=== PATIENT | female | born 1980 | race Caucasian/White ===

== ENCOUNTER 2021-05-29 11:08 | Emergency (ER) | payer BC ==
[~2021-05-29] VITALS: Ht 165 cm; Wt 146.0 kg
[~2021-05-29 11:08] MED LIST: ALPR.25T PO; CITA10TA PO
--- NOTE | 2021-05-29 11:40 | ED Cardiac General ---
History of Present Illness General Chief Complaint: Cardiac/General Problems Stated Complaint: HIGH BP 203/130 - SOA Nursing Triage Note: pt had hypertension at work this a.m. and went to dr. smith who sent her to the er.. pt has a rx for lisinopril but has not taken it for over a month Source: patient Exam Limitations: no limitations History of Present Illness Date Seen by Provider: May 29, 2021 Time Seen by Provider: 11:36 Initial Comments To ER by private vehicle with reports of high blood pressure. She teaches at [employer]. She noticed herself to be a little short of breath with exertion today and one of her peers noticed this as well. They referred her to the school nurse who checked her blood pressure and found it to be about 210/100. She then went to primary care Dr. Smith who found it to be 200/120. She was referred here to the emergency room. The shortness of breath that was unusual for her started just this past weekend about 2 days ago. No chest pain no cough. She does have some obesity and she attributed her dyspnea to that though she states it is a bit worse than usual. She was formerly on lisinopril 10 mg daily but ran out of that about a month ago and just has not been taking it since then, never got it refilled. Otherwise healthy. Timing/Duration: changing over time, 1-2 days Severity: moderate Activities at Onset: none Prior CP/Workup: no prior chest pain NTG SL PATTERNMAKER SAMPLE: No ASA po PATTERNMAKER SAMPLE: No Associated Systoms: Denies Symptoms Allergies and Home Medications Allergies Coded Allergies: No Known Drug Allergies (Unverified , 10/24/10) Patient Home Medication List Home Medication List Reviewed: Yes Alprazolam (Xanax) 0.25 Mg Tablet, 1 TAB PO NEEDED, (Reported) Entered as Reported by: BRE MAXWELL on 10/24/10828 Citalopram Hydrobromide (Citalopram Hbr) 10 Mg Tablet, 10 MG PO DAILY, (Reported) Entered as Reported by: BRE MAXWELL on 10/24/10828 Lisinopril (Lisinopril) 20 Mg Tablet, 20 MG PO DAILY Prescribed by: WAYNE DOWNING on 05/29/21 1308 Review of Systems Review of Systems Constitutional: see HPI EENTM: No Symptoms Reported Respiratory: Denies Cough; Shortness of Air, SOA With Exertion Cardiovascular: No Symptoms Reported; Denies Chest Pain Gastrointestinal: No Symptoms Reported Genitourinary: No Symptoms Reported Musculoskeletal: no symptoms reported Skin: no symptoms reported Psychiatric/Neurological: No Symptoms Reported Endocrine: No Symptoms Reported Hematologic/Lymphatic: No Symptoms Reported Past Wohyeqv-Whxoyz-Bdqjfu Hx Past Medical History Last Menstrual Period: May 19, 2021 Reproductive Disorders: Yes (UTERINE MASS, DUB) Physical Exam Vital Signs Vital Signs - First Documented 05/29/21 11:28 Temp 36.2 Pulse 77 Resp 20 B/P (MAP) 194/135 (154) Pulse Ox 94 O2 Delivery Room Air Capillary Refill : Less Than 3 Seconds Height, Weight, BMI Height: '" Weight: lbs. oz. kg; 53.00 BMI Method: General Appearance: No Apparent Distress, WD/WN, Obese, Other (Alert and oriented very pleasant no distress no accessory muscle use. No hypoxia. Rest blood pressure 155/96.) Neck: Full Range of Motion, Normal Inspection Respiratory: Normal Breath Sounds, No Accessory Muscle Use, No Respiratory Distress Cardiovascular: Regular Rate, Rhythm, Normal Peripheral Pulses Gastrointestinal: Normal Bowel Sounds, Non Tender, Soft Extremity: Normal Capillary Refill, Normal Inspection Neurologic/Psychiatric: Alert, Oriented x3 Skin: Normal Color, Warm/Dry Progress/Results/Core Measures Results/Orders Lab Results Laboratory Tests Test 05/29/21 11:50 Range/Units White Blood Count 15.2 H 4.3-11.0 10^3/uL Red Blood Count 5.14 H 3.80-5.11 10^6/uL Hemoglobin 11.9 11.5-16.0 g/dL Hematocrit 39 35-52 % Mean Corpuscular Volume 77 L 80-99 fL Mean Corpuscular Hemoglobin 23 L 25-34 pg Mean Corpuscular Hemoglobin Concent 30 L 32-36 g/dL Red Cell Distribution Width 17.2 H 10.0-14.5 % Platelet Count 444 H 130-400 10^3/uL Mean Platelet Volume 9.3 9.0-12.2 fL Immature Granulocyte % (Auto) 3 % Neutrophils (%) (Auto) 71 42-75 % Lymphocytes (%) (Auto) 17 12-44 % Monocytes (%) (Auto) 6 0-12 % Eosinophils (%) (Auto) 2 0-10 % Basophils (%) (Auto) 1 0-10 % Neutrophils # (Auto) 10.8 H 1.8-7.8 10^3/uL Lymphocytes # (Auto) 2.6 1.0-4.0 10^3/uL Monocytes # (Auto) 0.9 0.0-1.0 10^3/uL Eosinophils # (Auto) 0.4 H 0.0-0.3 10^3/uL Basophils # (Auto) 0.1 0.0-0.1 10^3/uL Immature Granulocyte # (Auto) 0.4 H 0.0-0.1 10^3/uL Neutrophils % (Manual) 82 % Lymphocytes % (Manual) 14 % Monocytes % (Manual) 2 % Eosinophils % (Manual) 1 % Basophils % (Manual) 1 % Polychromasia SLIGHT Hypochromasia MODERATE Poikilocytosis SLIGHT Anisocytosis MODERATE Microcytosis MODERATE Macrocytosis SLIGHT Prothrombin Time 13.1 12.2-14.7 SEC INR Comment 1.0 0.8-1.4 Activated Partial Thromboplast Time 29 24-35 SEC D-Dimer <= 0.27 0.00-0.49 UG/ML Sodium Level 138 135-145 MMOL/L Potassium Level 3.8 3.6-5.0 MMOL/L Chloride Level 103 98-107 MMOL/L Carbon Dioxide Level 21 21-32 MMOL/L Anion Gap 14 5-14 MMOL/L Blood Urea Nitrogen 15 7-18 MG/DL Creatinine 1.13 0.60-1.30 MG/DL Estimat Glomerular Filtration Rate 62 BUN/Creatinine Ratio 13 Glucose Level 94 70-105 MG/DL Calcium Level 9.2 8.5-10.1 MG/DL Corrected Calcium 9.6 8.5-10.1 MG/DL Magnesium Level 1.8 1.6-2.4 MG/DL Total Bilirubin 0.3 0.1-1.0 MG/DL Aspartate Amino Transf (AST/SGOT) 18 5-34 U/L Alanine Aminotransferase (ALT/SGPT) 21 0-55 U/L Alkaline Phosphatase 94 40-136 U/L Myoglobin 54.8 10.0-92.0 NG/ML Troponin I < 0.028 <0.028 NG/ML C-Reactive Protein High Sensitivity 3.90 H 0.00-0.50 MG/DL B-Type Natriuretic Peptide 134.7 H <100.0 PG/ML Total Protein 8.0 6.4-8.2 GM/DL Albumin 3.5 3.2-4.5 GM/DL Serum Test, Qualitative NEGATIVE NEGATIVE My Orders Orders - WAYNE DOWNING APRN Cbc With Automated Diff (05/29/21 11:32) Magnesium (05/29/21 11:32) Chest 1 View, Ap/Pa Only (05/29/21 11:32) Ekg Tracing (05/29/21 11:32) Comprehensive Metabolic Panel (05/29/21 11:32) Myoglobin Serum (05/29/21 11:32) Protime With Inr (05/29/21 11:32) Partial Thromboplastin Time (05/29/21 11:32) O2 (05/29/21 11:32) Monitor-Rhythm Ecg Trace Only (05/29/21 11:32) Lipid Panel (05/30/21 06:00) Ed Iv/Invasive Line Start (05/29/21 11:32) Bnp [place] (05/29/21 11:32) Fibrin Degradation Products (05/29/21 11:32) Troponin I [place] (05/29/21 11:32) Aspirin Chewable Tablet (Baby Aspirin Ch (05/29/21 11:45) Hcg,Qualitative Serum (05/29/21 11:32) Manual Differential (05/29/21 11:50) Procalcitonin (Pct) (05/29/21 12:08) Hs C Reactive Protein (05/29/21 12:08) Clonidine Tablet (Catapres Tablet) (05/29/21 13:15) Medications Given in ED Current Medications Medications Dose Ordered Sig/Bebeto Route Start Time Stop Time Status Last Admin Dose Admin Aspirin 324 mg ONCE ONCE PO 05/29/21 11:45 05/29/21 11:46 DC 05/29/21 11:56 324 MG Vital Signs/I&O 05/29/21 11:28 Temp 36.2 Pulse 77 Resp 20 B/P (MAP) 194/135 (154) Pulse Ox 94 O2 Delivery Room Air Blood Pressure Mean: 154 Departure Communication (Admissions) Family Conversation [id number]-spoke with Dr. Smith, he will see her Saturday morning for follow-up. NAME: MAIKOL LOZANO MED REC#: [id number] PT STATUS: REG ER : 1980 PHYSICIAN: WAYNE DOWNING APRN ADMIT DATE: 05/29/21/ER Draft Date of Exam:05/29/21 CHEST 1 VIEW, AP/PA ONLY INDICATION: Chest pain. EXAMINATION: Portable chest at 11:36 a.m. FINDINGS: Heart size and pulmonary vascularity are normal. Lungs are clear. There are no effusions or pneumothoraces. IMPRESSION: No acute abnormalities in the chest. Dictated on workstation # [id number] Dict: 05/29/21 1200 Trans: 05/29/21 1202 AS6 [id number] Interpreted by: VASHTI MASSEY MD Electronically signed by: Impression Primary Impression: Hypertension Disposition: 01 HOME, SELF-CARE Condition: Stable Departure-Patient Inst. Decision time for Depature: 13:04 Referrals: MAGDY SMITH DO (PCP/Family) Primary Care Physician Patient Instructions: High Blood Pressure (DC) Add. Discharge Instructions: 1. Your white blood cells were little elevated. This is nonspecific but warrants follow-up with primary care. I did send in a prescription for more lisinopril but this time a higher dose at 20 mg daily. Return to ER for any worsening. Dr. Smith would like to see you on Saturday morning for recheck. Start the blood pressure medication today. All discharge instructions reviewed with patient and/or family. Voiced understanding. Scripts Lisinopril (Lisinopril) 20 Mg Tablet 20 MG PO DAILY, #30 TAB 3 Refills Prov: WAYNE DOWNING APRN 05/29/21 Work/School Note: Work Release Form Date Seen in the Emergency Department: May 29, 2021 Return to Work: May 30, 2021 Copy Copies To 1: MAGDY SMITH PETER J APRN May 29, 2021 11:40
[2021-05-29] MEDS ORDERED: ASPIRIN 81 MG CHEW (CHILDREN'S ASA) PO ONE (11:45)
[2021-05-29 12:00] LABS: BASOPHILS # (AUTO) 0.1 10^3/uL (0.0-0.1); BASOPHILS % (AUTO) 1 % (0-10); EOSINOPHILS # (AUTO) 0.4 10^3/uL (0.0-0.3); EOSINOPHILS % (AUTO) 2 % (0-10); HEMATOCRIT 39 % (35-52); HEMOGLOBIN 11.9 g/dL (11.5-16.0); LYMPHOCYTES # (AUTO) 2.6 10^3/uL (1.0-4.0); LYMPHOCYTES % (AUTO) 17 % (12-44); MEAN CORPUSCULAR HEMOGLOBIN 23 pg (25-34); MEAN CORPUSCULAR HGB CONC 30 g/dL (32-36); MEAN CORPUSCULAR VOLUME 77 fL (80-99); MEAN PLATELET VOLUME 9.3 fL (9.0-12.2); MONOCYTES # (AUTO) 0.9 10^3/uL (0.0-1.0); MONOCYTES % (AUTO) 6 % (0-12); NEUTROPHILS # (AUTO) 10.8 10^3/uL (1.8-7.8); NEUTROPHILS % (AUTO) 71 % (42-75); PLATELET COUNT 444 10^3/uL (130-400); WHITE BLOOD COUNT 15.2 10^3/uL (4.3-11.0)
--- NOTE | 2021-05-29 12:02 | Diagnostic Imaging Report ---
INDICATION: Chest pain. EXAMINATION: Portable chest at 11:36 a.m. FINDINGS: Heart size and pulmonary vascularity are normal. Lungs are clear. There are no effusions or pneumothoraces. IMPRESSION: No acute abnormalities in the chest. Dictated by: Dictated on workstation # [id number]
[2021-05-29 12:10] LABS: ALBUMIN 3.5 GM/DL (3.2-4.5); POTASSIUM 3.8 MMOL/L (3.6-5.0)
[2021-05-29 12:12] LABS: CALCIUM 9.2 MG/DL (8.5-10.1)
[2021-05-29 12:14] LABS: PROTHROMBIN TIME PATIENT 13.1 SEC (12.2-14.7)
[2021-05-29 12:15] LABS: BILIRUBIN,TOTAL 0.3 MG/DL (0.1-1.0)
[2021-05-29 12:17] LABS: CREATININE SERUM 1.13 MG/DL (0.60-1.30)
[2021-05-29 12:20] LABS: MAGNESIUM 1.8 MG/DL (1.6-2.4)
[2021-05-29 12:34] LABS: ANISOCYTOSIS MODERATE; BASOPHILS % (MANUAL) 1 %; EOSINOPHILS % (MANUAL) 1 %; HYPOCHROMASIA MODERATE; LYMPHOCYTES % (MANUAL) 14 %; MICROCYTOSIS MODERATE; MONOCYTES % (MANUAL) 2 %; NEUTROPHILS % (MANUAL) 82 %; POIKILOCYTOSIS SLIGHT; POLYCHROMASIA SLIGHT
[2021-05-29] MEDS ORDERED: LISI20TA26 PO (13:08)
[2021-05-29] MEDS ORDERED: cloNIDine 0.1 MG (CATAPRES) TAB PO ONE (13:15)
[2021-05-29 13:24] VITALS: BP 156/94
== END 2021-05-29 13:24 | disposition home or self-care (01) ==
LOC: EDUNIT# 11:08 → ER 11:10
DX: I10 Essential (primary) hypertension (principal); E66.9 Obesity, unspecified; Z68.43 Body mass index [BMI] 50.0-59.9, adult
CPT/HCPCS: 36415; 71045; 80053; 83735; 83874; 83880; 84145; 84484; 84703; 85007; 85027; 85379; 85610; 85730; 86141; 93005; 93041

== ENCOUNTER 2021-06-14 08:10 | Emergency (ER) | payer BC ==
[~2021-06-14] VITALS: Ht 165.1 cm; Wt 142.8 kg
[~2021-06-14 08:10] MED LIST changes: +LISI20TA26 PO
--- NOTE | 2021-06-14 09:05 | ED Cardiac General ---
History of Present Illness General Chief Complaint: Cardiac/General Problems Stated Complaint: HIGH BP Nursing Triage Note: PT AMB TO RM 8 WITH COMPLAINT OF HTN. STATES HAS BEEN ONGOING FOR TWO WEEKS. WAS SENT BY PCP FOR FURTHER WORKUP. Source: patient, RN/MD Exam Limitations: no limitations History of Present Illness Date Seen by Provider: Jun 14, 2021 Time Seen by Provider: 09:00 Initial Comments Patient to the ER by private conveyance from home with chief complaint that she has been dealing for the past couple weeks with high blood pressure around 200/100. 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 Dr. Smith sent her to the ER on the , about a week ago. She had 190/100 blood pressure at that time and had been on lisinopril 10 mg for 10 years. They elected to raise her lisinopril to 40 mg which she did not tolerate because she developed a cough and shortness of air. She had a work-up and had this switched to losartan 100 mg with hydrochlorothiazide 12.5 mg daily. This medication was started on Saturday, [address] Smith was concerned about her blood pressure so asked her to check it at home and it was high 200/110. She went into the clinic and had not taken her medication but still had high blood pressure similar for Dr. Smith so he encouraged her to come out to the ER for a work-up. The patient does have a significant early onset of coronary disease in her family, obesity, suspected obstructive sleep apnea though she has not completed a sleep study, hypertension but no known hyperlipidemia or diabetes. Since she does not check her blood pressure she does not know what it was running prior to 2 weeks ago when she started having symptoms. She is never had any chest pain. No chest pressure numbness weakness tingling in her arms neck or jaw. The patient states she feels much better today than she did a week ago. She thinks she is tolerating the medications well and does not feel she is been on them long enough to have good effect from them. Allergies and Home Medications Allergies Coded Allergies: No Known Drug Allergies (Unverified , 10/24/10) Patient Home Medication List Home Medication List Reviewed: Yes Alprazolam (Xanax) 0.25 Mg Tablet, 1 TAB PO NEEDED, (Reported) Entered as Reported by: BRE MAXWELL on 10/24/10 0829 Citalopram Hydrobromide (Citalopram Hbr) 10 Mg Tablet, 10 MG PO DAILY, (Reported) Entered as Reported by: BRE MAXWELL on 10/24/1029 Lisinopril (Lisinopril) 20 Mg Tablet, 20 MG PO DAILY Prescribed by: WAYNE DOWNING on 05/29/21 1308 Losartan/Hydrochlorothiazide (Losartan-Hctz 100-25 mg Tab) 100 Mg-25 Mg Tablet, 1 EACH PO DAILY Prescribed by: FATMATA LUONG on 06/14/21 1055 Review of Systems Review of Systems Constitutional: No chills, No diaphoresis EENTM: No Blurred Vision, No Double Vision Respiratory: Denies Cough, Denies Shortness of Air Cardiovascular: Denies Chest Pain, Denies Lightheadedness Gastrointestinal: Denies Abdomen Distended, Denies Abdominal Pain Genitourinary: Denies Burning, Denies Discharge Musculoskeletal: No back pain, No joint pain All Other Systems Reviewed Negative Unless Noted: Yes Past Qacqpka-Fzyawy-Jyfmrw Hx Patient Social History Tobacco Use?: No Use of E-Cig and/or Vaping dev: No Substance use?: No Alcohol Use?: No Pt feels they are or have been: No Immunizations Up To Date First/Initial COVID19 Vaccinat: 12/28/2020 Second COVID19 Vaccination Gokul: 12/28/2020 Third COVID19 Vaccination Date: 12/28/2020 Past Medical History Reproductive Disorders: Yes (UTERINE MASS, DUB) Physical Exam Vital Signs Vital Signs - First Documented 06/14/21 08:15 Temp 36.6 Pulse 92 Resp 13 B/P (MAP) 206/132 (156) Pulse Ox 95 O2 Delivery Room Air Capillary Refill : Less Than 3 Seconds Height, Weight, BMI Height: '" Weight: lbs. oz. kg; 52.00 BMI Method: General Appearance: No Apparent Distress, WD/WN, Obese HEENT: PERRL/EOMI, Pharynx Normal, Moist Mucous Membranes Neck: Full Range of Motion, Normal Inspection Respiratory: Lungs Clear, Normal Breath Sounds, No Accessory Muscle Use, No Respiratory Distress Cardiovascular: Regular Rate, Rhythm, No Edema, Normal Peripheral Pulses Gastrointestinal: Normal Bowel Sounds, Non Tender, Soft Extremity: Normal Capillary Refill, Normal Inspection, No Pedal Edema Neurologic/Psychiatric: Alert, Oriented x3 Skin: Normal Color, Warm/Dry Progress/Results/Core Measures Results/Orders Lab Results Laboratory Tests Test 06/14/21 09:01 Range/Units White Blood Count 10.1 4.3-11.0 10^3/uL Red Blood Count 5.52 H 3.80-5.11 10^6/uL Hemoglobin 12.7 11.5-16.0 g/dL Hematocrit 42 35-52 % Mean Corpuscular Volume 76 L 80-99 fL Mean Corpuscular Hemoglobin 23 L 25-34 pg Mean Corpuscular Hemoglobin Concent 31 L 32-36 g/dL Red Cell Distribution Width 17.3 H 10.0-14.5 % Platelet Count 460 H 130-400 10^3/uL Mean Platelet Volume 9.4 9.0-12.2 fL Immature Granulocyte % (Auto) 2 % Neutrophils (%) (Auto) 67 42-75 % Lymphocytes (%) (Auto) 19 12-44 % Monocytes (%) (Auto) 7 0-12 % Eosinophils (%) (Auto) 4 0-10 % Basophils (%) (Auto) 1 0-10 % Neutrophils # (Auto) 6.8 1.8-7.8 10^3/uL Lymphocytes # (Auto) 1.9 1.0-4.0 10^3/uL Monocytes # (Auto) 0.7 0.0-1.0 10^3/uL Eosinophils # (Auto) 0.4 H 0.0-0.3 10^3/uL Basophils # (Auto) 0.1 0.0-0.1 10^3/uL Immature Granulocyte # (Auto) 0.2 H 0.0-0.1 10^3/uL Sodium Level 136 135-145 MMOL/L Potassium Level 3.9 3.6-5.0 MMOL/L Chloride Level 100 98-107 MMOL/L Carbon Dioxide Level 21 21-32 MMOL/L Anion Gap 15 H 5-14 MMOL/L Blood Urea Nitrogen 17 7-18 MG/DL Creatinine 1.30 0.60-1.30 MG/DL Estimat Glomerular Filtration Rate 52 BUN/Creatinine Ratio 13 Glucose Level 99 70-105 MG/DL Calcium Level 9.6 8.5-10.1 MG/DL Troponin I < 0.028 <0.028 NG/ML My Orders Orders - FATMATA LUONG Ekg Tracing (06/14/21 08:17) Continuous Ekg Monitoring (06/14/21 08:17) Cbc With Automated Diff (06/14/21 08:47) Basic Metabolic Panel (06/14/21 08:47) Troponin I [place] (06/14/21 09:32) Vital Signs/I&O 06/14/21 06/14/21 08:15 11:05 Temp 36.6 Pulse 92 81 Resp 13 16 B/P (MAP) 206/132 (156) 187/130 Pulse Ox 95 98 O2 Delivery Room Air Room Air Blood Pressure Mean: 156 Progress Progress Note : Time: 09:05 Progress Note The patient has not been on enough half-lives of her losartan/hydrochlorothiazide to reach steady-state concentration yet. However she does continue to have persistent hypertension and it would not be unreasonable if she is tolerating the medications with good labs to go ahead and double them to twice a day or 2 tablets in the morning. We discussed this and her concerns and she is okay with this plan. We will check some labs and if they are okay will send her a prescription for double strength 200 mg losartan and 25 mg hydrochlorothiazide. She does not meet criteria for recalcitrant hypertension. She is not having hypertensive emergency as she is not having any symptoms today. It is unclear how long her blood pressures been this high and probably should take several weeks to attempt to get her blood pressure back down to a normal level at the earliest. Initial ECG Impression Date: Jun 14, 2021 Initial ECG Impression Time: 08:26 Initial ECG Rate: 86 Initial ECG Rhythm: Normal Sinus Initial ECG Intervals: Normal Initial ECG Impression: Normal Initial ECG Comparisson: Unchanged Comment Normal sinus rhythm without clinically relevant ST elevation or depression Departure Impression Primary Impression: Hypertension Qualified Codes: I10 - Essential (primary) hypertension Disposition: 01 HOME, SELF-CARE Condition: Stable Departure-Patient Inst. Decision time for Depature: 10:52 Referrals: MAGDY SMITH DO (PCP/Family) Primary Care Physician Patient Instructions: High Blood Pressure (DC) Add. Discharge Instructions: Start taking the amlodipine 5 mg daily. Continue taking your other medications as prescribed. Follow-up in [address] Smith with a log of your blood pressures. 3-5 times a week first thing in the morning check your blood pressure, log it on a piece of paper to be taken to your doctor at the next appointment. Consider talking to your doctor about a sleep study as obstructive sleep apnea can lead to [id number] high blood pressure. Drink plenty of fluids. Promptly return to the nearest ER if you begin to experience chest pain, shortness of air or other worrisome symptoms. All discharge instructions reviewed with patient and/or family. Voiced understanding. Scripts Amlodipine Besylate (Amlodipine Besylate) 5 Mg Tablet 5 MG PO DAILY for 30 Days, #30 TAB 0 Refills Prov: FATMATA LUONG 06/14/21 Work/School Note: Work Release Form Date Seen in the Emergency Department: Jun 14, 2021 Return to Work: Jun 14, 2021 Restrictions: No Restrictions Copy Copies To 1: MAGDY SMITH DO FATMATA LUONG Jun 14, 2021 09:05
[2021-06-14 09:09] LABS: BASOPHILS # (AUTO) 0.1 10^3/uL (0.0-0.1); BASOPHILS % (AUTO) 1 % (0-10); EOSINOPHILS # (AUTO) 0.4 10^3/uL (0.0-0.3); EOSINOPHILS % (AUTO) 4 % (0-10); HEMATOCRIT 42 % (35-52); HEMOGLOBIN 12.7 g/dL (11.5-16.0); LYMPHOCYTES # (AUTO) 1.9 10^3/uL (1.0-4.0); LYMPHOCYTES % (AUTO) 19 % (12-44); MEAN CORPUSCULAR HEMOGLOBIN 23 pg (25-34); MEAN CORPUSCULAR HGB CONC 31 g/dL (32-36); MEAN CORPUSCULAR VOLUME 76 fL (80-99); MEAN PLATELET VOLUME 9.4 fL (9.0-12.2); MONOCYTES # (AUTO) 0.7 10^3/uL (0.0-1.0); MONOCYTES % (AUTO) 7 % (0-12); NEUTROPHILS # (AUTO) 6.8 10^3/uL (1.8-7.8); NEUTROPHILS % (AUTO) 67 % (42-75); PLATELET COUNT 460 10^3/uL (130-400); WHITE BLOOD COUNT 10.1 10^3/uL (4.3-11.0)
[2021-06-14 09:24] LABS: POTASSIUM 3.9 MMOL/L (3.6-5.0)
[2021-06-14 09:26] LABS: CALCIUM 9.6 MG/DL (8.5-10.1)
[2021-06-14 09:30] LABS: CREATININE SERUM 1.3 MG/DL (0.60-1.30)
[2021-06-14] MEDS ORDERED: LOSA1TAB23 PO (10:55)
[2021-06-14 11:05] VITALS: BP 187/130
[2021-06-14] MEDS ORDERED: AMLO-250 PO (11:15)
== END 2021-06-14 11:05 | disposition home or self-care (01) ==
LOC: EDUNIT# 08:10 → ER 08:11
DX: I10 Essential (primary) hypertension (principal); E66.9 Obesity, unspecified; Z68.43 Body mass index [BMI] 50.0-59.9, adult
CPT/HCPCS: 36415; 80048; 84484; 85025; 93005

== ENCOUNTER 2021-11-17 14:54 | Outpatient (CLI) | payer BC ==
[~2021-11-17 14:54] MED LIST changes: +AMLO-250 PO; +LOSA1TAB23 PO
== END 2021-11-17 15:15 ==
LOC: SLEEP 14:54
PROVIDERS: ATTEND Nurse Practitioner
DX: G47.33 Obstructive sleep apnea (adult) (pediatric) (principal)
CPT/HCPCS: G0399